=== PATIENT | male | born 1985 ===

== ENCOUNTER → 2018-05-20 | Outpatient (CLI) | payer MEDICARE, OTHER ==
[2018-05-20 14:13] VITALS: BP 121/84; PULSE 85; RESP 16
--- NOTE | 2018-05-20 14:43 | P.CONS ---
History of Present Illness - Reason for Consult Consult date: 05/20/18 - Chief Complaint Lower back and right leg pain - History of Present Illness This is a 33-year-old gentleman with history of chronic lower back pain that started about 7 years ago with no precipitating events. The pain radiates down the right leg to the right foot with occasional tingling in the foot. The patient denies any bowel or bladder dysfunction or any weakness in the lower extremities. He has been using medical marijuana for his pain. He denies any other health issues. He came in today with his father. The pain gets worse by standing and sitting for too long and improves by laying down and using heat pads. Review of Systems Constitutional: Denies chills, Denies fever Eyes: denies blurred vision, denies pain Ears, nose, mouth and throat: Denies headache, Denies sore throat Cardiovascular: Denies chest pain, Denies shortness of breath Respiratory: Denies cough Gastrointestinal: Denies abdominal pain, Denies diarrhea, Denies nausea, Denies vomiting Musculoskeletal: Reports as per HPI Integumentary: Denies pruritus, Denies rash Neurological: Reports as per HPI Past Medical History Past Medical History: No Reported History History of Any Multi-Drug Resistant Organisms: None Reported Additional Past Surgical History / Comment(s): Left arm nerve repair. Vasectomy Past Psychological History: No Psychological Hx Reported Smoking Status: Current every day smoker Past Alcohol Use History: Occasional Past Drug Use History: Marijuana Additional Drug Use History / Comment(s): Has Medical Marijuana Card Medications and Allergies Home Medications Medication Instructions Recorded Confirmed Type Gabapentin [Neurontin] 300 mg PO BID PRN 05/20/18 05/20/18 History Naproxen Sodium [Aleve] 220 mg PO DAILY PRN 05/20/18 05/20/18 History Allergies Allergy/AdvReac Type Severity Reaction Status Date / Time No Known Allergies Allergy Verified 05/20/18 13:57 Physical Exam Vitals: Vital Signs Pulse Resp BP 05/20/18 14:03 85 16 121/84 Intake and Output 05/19/18 05/20/18 05/20/18 22:59 06:59 14:59 Other: Weight 81.647 kg - Constitutional General appearance: average body habitus - EENT Eyes: PERRLA - Respiratory Respiratory: bilateral: CTA - Cardiovascular Rhythm: regular - Neurologic Neurologic: CNII-XII intact - Musculoskeletal Neuro exam of the lower extremities within normal limits Straight leg raising test negative bilaterally Dorian's test negative bilaterally He has mild tenderness in the lumbar paravertebral area bilaterally - Psychiatric Psychiatric: A&O x's 3, appropriate affect, intact judgment & insight Results Results: The lumbar spine MRI showed moderate to large central extrusion with caudad migration at the L5-S1 level with slight effacement of the descending bilateral S1 nerve roots. Assessment and Plan Plan: This is a 33-year-old gentleman with what seems to be right lumbar radiculopathy due to disc herniation at the L5-S1 level with effacement of the S1 nerve root. The patient is intact neurologically in the lower extremities. I spoke with the patient about getting lumbar epidural steroid injection under fluoroscopic guidance at the L5-S1 level on the right paramedian approach. The procedure was explained to the patient and he was agreeable to it. The patient continues to use medical marijuana for his pain. I encouraged the patient to quit using tobacco. Opioids will not be prescribed. The patient is getting physical therapy at this point.
== END | disposition home or self-care (01) ==
LOC: PNWHC3 13:21
PROVIDERS: ATTEND Anesthesiology
DX: G89.29 Other chronic pain (principal); M51.27 Other intervertebral disc displacement, lumbosacral region; F12.929 Cannabis use, unspecified with intoxication, unspecified; F17.200 Nicotine dependence, unspecified, uncomplicated; Z98.890 Other specified postprocedural states; Z79.899 Other long term (current) drug therapy
CPT/HCPCS: 99211

== ENCOUNTER → 2022-08-26 | Outpatient (CLI) | payer MEDICARE, OTHER ==
--- NOTE | 2022-08-26 10:37 | MR ---
EXAMINATION TYPE: MR lumbar spine wo con DATE OF EXAM: 08/26/2022 8:15 AM COMPARISON: None. CLINICAL INDICATION: Male, 37 years old with history of M51.36, R20.0; Low back pain into sherlyn lower e xtremities TECHNIQUE: Sagittal only imaging was performed utilizing: T1-weighted, T2-weighted, and turbo inversi on recovery imaging of the lumbar spine. Patient terminated exam during axial IV Contrast: None. FINDINGS: Limited exam sagittals only. The STIR imaging are extremely limited due to motion. T2-weighted signal sagittal only demonstrates no evidence for significant spinal canal stenosis. There is moderate L5-S 1 bilateral neural foraminal stenosis. Mild osteophyte formation and facet joint arthropathy througho ut the spine. Possible disc herniation at the L5-S1 level. IMPRESSION: Limited sagittal only exam, no evidence for significant spinal canal stenosis. There is moderate bila teral L5-S1 neural foraminal stenosis and possibly disc herniation at this level.
== END | disposition home or self-care (01) ==
LOC: RADMRIMAIN 07:45
PROVIDERS: ATTEND Family Medicine
DX: M51.36 Other intervertebral disc degeneration, lumbar region (principal); M48.061 Spinal stenosis, lumbar region without neurogenic claudication; R20.0 Anesthesia of skin
CPT/HCPCS: 72148